=== PATIENT | female | born 1965 | race Caucasian/White ===

== ENCOUNTER 2018-09-04 18:59 | Emergency (ER) | payer SELFPAY ==
[2018-09-04 18:59] VITALS: BMI 42.9
[2018-09-04 19:09] VITALS: RESP 18
[2018-09-04] MEDS ORDERED: Sodium Chloride 0.9% 1,000 ML IV STA (20:06)
[2018-09-04] MEDS ORDERED: DiphenhydrAMINE 50 mg/ml Inj IVP STA (20:08)
--- NOTE | 2018-09-04 20:41 | C.PDOC ---
History Of Present Illness 52 y/o female with a PMHx of migraines, presents with complaint of headache for 3 days. States headache is mostly left-sided, like a shocking electricity, associated with photophobia, nausea, and 5 episodes of non-bilious non-bloody vomiting today. States symptoms feel the same as previous migraine headache. Did not take any meds prior to arrival. Denies any fever, neck stiffness, vision change, dizziness, abdominal pain, numbness, or motor weakness. Time Seen by Provider: 09/04/18 19:32 Chief Complaint (Nursing): Headache History Per: Patient History/Exam Limitations: no limitations Onset/Duration Of Symptoms: Days (3) Current Symptoms Are (Timing): Still Present Preceeding Symptoms: Known Migraine Symptoms Associated Symptoms: Photophobia, Nausea, Vomiting Past Medical History Reviewed: Historical Data, Nursing Documentation, Vital Signs Vital Signs: Last Vital Signs Temp 99 F 09/04/18 19:06 Pulse 109 H 09/04/18 19:06 Resp 18 09/04/18 19:06 BP 129/84 09/04/18 19:06 Pulse Ox 97 09/04/18 19:06 - Medical History PMH: Asthma, HTN, Kidney Stones Family History: States: Unknown Family Hx - Social History Hx Alcohol Use: No Hx Substance Use: No - Immunization History Hx Tetanus Toxoid Vaccination: No Hx Influenza Vaccination: No Hx Pneumococcal Vaccination: No Review Of Systems Except As Marked, All Systems Reviewed And Found Negative. Constitutional: Negative for: Fever, Chills Eyes: Positive for: Other (Photophobia). Negative for: Vision Change Cardiovascular: Negative for: Chest Pain Respiratory: Negative for: Shortness of Breath Gastrointestinal: Positive for: Nausea, Vomiting. Negative for: Abdominal Pain Musculoskeletal: Negative for: Neck Pain Neurological: Positive for: Headache. Negative for: Weakness, Numbness, Dizziness Physical Exam - Physical Exam Additional Physical Exam Comments: Constitutional: Patient lying in stretcher, hat covering eyes. No acute distress. Head: Normocephalic. Atraumatic. Eyes: PERRL. ENT: Moist mucous membranes. Neck: Supple. Cardiovascular: Regular rate. Radial pulse 2+ bilaterally. Chest: No tenderness. Respiratory: Clear to auscultation bilaterally. GI: Soft. Nontender. Nondistended. Back: No CVA tenderness. Musculoskeletal: No tenderness or swelling of extremities. Skin: No rash. Neurologic: Alert, no focal deficit. ED Course And Treatment O2 Sat by Pulse Oximetry: 97 (RA) Pulse Ox Interpretation: Normal Medical Decision Making Medical Decision Making: Plan: Administered IV fluids, 30 mg IV Toradol, 10 mg IV Reglan, 50 mg IV Benadryl, and 975 mg PO Tylenol. Patient resting in ED comfortably, states feels better, would like to be discharged. Instructed to return to ED for worsening pain, fever, vomiting, stiff neck, or any other problem. Disposition - Disposition Referrals: Isaac Coronado MD [Medical Doctor] - Disposition: HOME/ ROUTINE Disposition Time: 21:36 Condition: STABLE Instructions: Migraine Headache (DC) Forms: [employer] ([place]) - Clinical Impression Clinical Impression: Headache - Scribe Statement The provider has reviewed the documentation as recorded by the Maday [place] Provider Attestation: All medical record entries made by the Rowenaibgerardo were at my direction and personally dictated by me. I have reviewed the chart and agree that the record accurately reflects my personal performance of the history, physical exam, medical decision making, and the department course for this patient. I have also personally directed, reviewed, and agree with the discharge instructions and disposition.
[2018-09-04 21:16] VITALS: BP 107/70; PULSE 84; TEMP 98.5
[2018-09-04 21:37] VITALS: O2SAT 97
== END 2018-09-04 21:47 | disposition home or self-care (01) ==
LOC: C.ER 18:59
DX: R51 Headache (principal)
CPT/HCPCS: 82948; 96361; 96374; 96375; 99285; J1200; J1885; J2765; J7030